=== PATIENT | female | born 1995 | race Caucasian/White ===

== ENCOUNTER 2016-10-31 09:45 | Emergency (ER) | payer OTHER ==
[2016-10-31 10:07] VITALS: BP 113/45
[2016-10-31] MEDS ORDERED: Ondansetron ODT TAB* 4 MG PO ONE (10:49)
[2016-10-31] MEDS ORDERED: Famotidine TAB* 20 MG PO ONE (10:50)
[2016-10-31] MEDS ORDERED: Acetaminophen TAB* 325 MG PO ONE (10:53)
--- NOTE | 2016-10-31 10:57 | UC ---
UC General HPI - HPI Summary HPI Summary: patient ate at a restaurant last night, 3 hours later stared having violent diarrhea and nausea, she is able to tolerate water but diarrhea is persistant. low grade temp - History of Current Complaint Chief Complaint: UCGeneralIllness Stated Complaint: DIARRHEA,ACHY,STOMACH CRAMPS Time Seen by Provider: 10/31/16 10:40 Hx Obtained From: Patient Onset/Duration: Sudden Onset, Lasting Hours Timing: Constant Onset Severity: Moderate Current Severity: Moderate Pain Intensity: 6 Associated Signs & Symptoms: Positive: Abdominal Pain, Diarrhea, Headache, Nausea - Allergy/Home Medications Allergies/Adverse Reactions: Allergies Allergy/AdvReac Type Severity Reaction Status Date / Time No Known Allergies Allergy Verified 10/31/16 10:07 PMH/Surg Hx/FS Hx/Imm Hx Previously Healthy: Yes Endocrine History Of: Denies: Diabetes, Thyroid Disease Cardiovascular History Of: 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 C section - Family History Known Family History: Positive: Cardiac Disease, Hypertension, Diabetes - Social History Alcohol Use: None Substance Use Type: None Smoking Status (MU): Former Smoker Type: Cigarettes Amount Used/How Often: 1 cig daily Have You Smoked in the Last Year: No When Did the Patient Quit Smoking/Using Tobacco: 9 WKS AGO - Immunization History Most Recent Influenza Vaccination: NO Review of Systems Constitutional: Fever Skin: Negative Eyes: Negative ENT: Negative Respiratory: Negative Cardiovascular: Negative Gastrointestinal: Abdominal Pain, Diarrhea, Other - nausea Genitourinary: Negative Motor: Negative Neurovascular: Negative Musculoskeletal: Negative Neurological: Headache Psychological: Negative All Other Systems Reviewed And Are Negative: Yes Physical Exam Triage Information Reviewed: Yes Appearance: Well-Nourished, Ill-Appearing, Pain Distress Vital Signs: Initial Vital Signs Temp 100.3 F 10/31/16 10:02 Pulse 105 10/31/16 10:02 Resp 16 10/31/16 10:02 BP 113/45 10/31/16 10:02 Pulse Ox 98 10/31/16 10:02 Vital Signs Reviewed: Yes Eye Exam: Normal Eyes: Positive: Conjunctiva Clear ENT Exam: Normal ENT: Positive: Normal ENT inspection, Pharynx normal, TMs normal Dental Exam: Normal Neck exam: Normal Neck: Positive: Supple, Nontender, No Lymphadenopathy Respiratory Exam: Normal Respiratory: Positive: Chest non-tender, Lungs clear, Normal breath sounds Cardiovascular Exam: Normal Cardiovascular: Positive: RRR, No Murmur, Pulses Normal Abdominal Exam: Other - abdomen is soft, tenderness is diffuse, no masses, no rebound tenderness, no obturator sign, no organomegaly, no visible bruises, C section scar, well healed Bowel Sounds: Positive: Hyperactive Musculoskeletal Exam: Normal Musculoskeletal: Positive: Strength Intact, ROM Intact, No Edema Neurological Exam: Normal Neurological: Positive: Alert, Muscle Tone Normal Psychological Exam: Normal Skin Exam: Normal Course/Dx - Course Course Of Treatment: history obtained, exam performed, meds given here for nasuea, offered IV fluids, patient refused. Po intake increased stressed due to patient is actively and having diarrhea. zofran prescribed. - Differential Dx - Multi-Symptom Provider Diagnoses: dehydration. diarrhea. possible food poisoning Discharge - Discharge Plan Condition: Stable Disposition: HOME Patient Education Materials: Food Poisoning (ED), Dehydration (ED) Additional Instructions: take the zofran for nausea. The important thing to remember is to keep drinking plenty of fluid. if you develop signs of dehydration, see attched information, return or report to ER for fluid administration. Get plenty of rest. Diarrhea should subside within the next 24 hours. if symptoms are not improving in that time i recommend follow up as well.
== END 2016-10-31 11:03 | disposition home or self-care (01) ==
LOC: UCCORT 09:45
DX: R19.7 Diarrhea, unspecified (principal); E86.0 Dehydration; R01.1 Cardiac murmur, unspecified; Z87.891 Personal history of nicotine dependence
CPT/HCPCS: 99212; A9270-GY; G0463

== ENCOUNTER 2016-12-12 12:10 | Emergency (ER) | payer OTHER ==
[2016-12-12] MEDS ORDERED: Acetaminophen TAB* 325 MG PO ONE (13:07)
--- NOTE | 2016-12-12 13:07 | UC ---
Head Injury HPI - HPI Summary HPI Summary: complaint of left knee pain and leftsided headpain that started this morning at 10:30 this morning was walking and tripped over her dog falling onto knee and hit left side head on the doorframe left knee pain is worse with ambulation and any movement increases the pain pain is worse on the sides of her knee and around patella pain is slightly reduced with ice slight headache in her forehead denies LOC , vomiting , confusion still feels slightly dizzy if she moves too fast hasn't taken any medication for pain - History Of Current Complaint Chief Complaint: UCHeadInjury Stated Complaint: HEAD & LEFT KNEE INJURY-FALL Time Seen by Provider: 12/12/16 12:54 Hx Obtained From: Patient Hx Last Menstrual Period: 11/25/16 Character: Dull Aggravating Factor(s): Other - fall Associated Signs And Symptoms: Positive: Negative - Allergies/Home Medications Allergies/Adverse Reactions: Allergies Allergy/AdvReac Type Severity Reaction Status Date / Time No Known Allergies Allergy Verified 12/12/16 12:26 Home Medications: Home Medications Vit W/ Ferrous Fumara [ Complete] 1 tab PO DAILY 12/12/16 [ History Confirmed 12/12/16] PMH/Surg Hx/FS Hx/Imm Hx Previously Healthy: Yes Endocrine History Of: Denies: Diabetes, Thyroid Disease Cardiovascular History Of: 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 C section - Family History Known Family History: Positive: Cardiac Disease, Hypertension, Diabetes - Social History Occupation: Employed Full-time Lives: With Family Alcohol Use: Rare Substance Use Type: None Smoking Status (MU): Current Every Day Smoker Type: Cigarettes Amount Used/How Often: variable each day Length of Time of Smoking/Using Tobacco: started at age 17 Have You Smoked in the Last Year: Yes When Did the Patient Quit Smoking/Using Tobacco: 9 WKS AGO Cessation Counseling: Patient Advised to Stop - Immunization History Most Recent Influenza Vaccination: NO Review of Systems Constitutional: Negative Skin: Negative Eyes: Negative ENT: Negative Respiratory: Negative Cardiovascular: Negative Gastrointestinal: Negative Genitourinary: Negative Motor: Negative Neurovascular: Negative Musculoskeletal: Other: - left knee pain Neurological: Headache All Other Systems Reviewed And Are Negative: Yes Physical Exam Triage Information Reviewed: Yes Appearance: No Pain Distress, Well-Nourished Vital Signs: Initial Vital Signs Temp 98.5 F 12/12/16 12:16 Pulse 88 12/12/16 12:16 Resp 14 12/12/16 12:16 BP 113/64 12/12/16 12:16 Pulse Ox 98 12/12/16 12:16 Vital Signs Reviewed: Yes Eyes: Positive: Conjunctiva Clear ENT: Positive: Pharynx normal, TMs normal. Negative: Nasal congestion, Nasal drainage Neck: Positive: No Lymphadenopathy, Other: - no c-spine tenderness Respiratory: Positive: Lungs clear, Normal breath sounds, No respiratory distress, No accessory muscle use Cardiovascular: Positive: RRR, No Murmur Abdomen Description: Positive: Nontender, Soft Musculoskeletal: Positive: Other: - LLE- tenderness around lower area of patella -mild edema no instability with varus and valgus strain negative drawer signs Neurological: Positive: Alert, Other: - CN ll-Xll,negative [place] Psychological Exam: Normal Skin Exam: Normal Head Injury Course/Dx - Course Course Of Treatment: exam completed. no indication for imaging -head injury. precautions discussed - Differential Dx/Diagnosis Differential Diagnosis/HQI/PQRI: Contusion, Other - LLE-knee sprain Provider Diagnoses: head injury. left knee sprain Discharge - Discharge Plan Condition: Stable Disposition: HOME Patient Education Materials: Knee Sprain (ED), Head Injury (ED), RICE Therapy ( ED) Forms: *Work Release Referrals: Rachel Sparks MD [Primary Care Provider] - Yandel Daniels MD [Medical Doctor] - Additional Instructions: Increase fluids and rest Take acetaminophen for pain Please review your discharge instructions. If your symptoms do not improve please call your primary care provider , Dr Daniels or return to urgent care.
--- NOTE | 2016-12-12 13:37 | RAD ---
INDICATION: Left knee trauma. TECHNIQUE: 2 views of the left knee were obtained. FINDINGS: The bones are normal alignment. No joint effusion or fracture is seen. Joint spaces appear maintained. IMPRESSION: NO EVIDENCE FOR FRACTURE.
[2016-12-12 14:05] VITALS: BP 113/60
== END 2016-12-12 14:05 | disposition home or self-care (01) ==
LOC: UCCORT 12:10
DX: S09.90XA Unspecified injury of head, initial encounter (principal); S83.92XA Sprain of unspecified site of left knee, initial encounter; W01.0XXA Fall on same level from slipping, tripping and stumbling without subsequent striking against object, initial encounter; Y93.9 Activity, unspecified; Y92.9 Unspecified place or not applicable; F17.210 Nicotine dependence, cigarettes, uncomplicated
CPT/HCPCS: 99213; A9270-GY; G0463

== ENCOUNTER 2017-02-03 13:38 | Emergency (ER) | payer SELFPAY ==
[2017-02-03 13:53] VITALS: BP 115/61
--- NOTE | 2017-02-03 14:27 | UC ---
Ear Complaint HPI - HPI Summary HPI Summary: Patient has had increased ear pain and DEJESUS over the past 3 days. loose stools for the past 3 days as well. denies fever, sore throat, - History of Current Complaint Chief Complaint: UCGeneralIllness Stated Complaint: BOWEL/EAR COMPLAINT Time Seen by Provider: 02/03/17 14:15 Hx Obtained From: Patient Hx Last Menstrual Period: 12/23/16, PERIODS ARE IRREGULAR ?: No Onset/Duration: Sudden Onset, Lasting Days Severity Initially: Mild Severity Currently: Moderate Alleviating Factors: Nothing Associated Signs/Symptoms: Positive: Hearing Loss - muffled in left ear - Allergies/Home Medications Allergies/Adverse Reactions: Allergies Allergy/AdvReac Type Severity Reaction Status Date / Time No Known Allergies Allergy Verified 02/03/17 13:45 PMH/Surg Hx/FS Hx/Imm Hx Previously Healthy: Yes Endocrine History Of: Denies: Diabetes, Thyroid Disease Cardiovascular History Of: 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 C section - Family History Known Family History: Positive: Cardiac Disease, Hypertension, Diabetes - Social History Alcohol Use: Rare Substance Use Type: None Smoking Status (MU): Current Some Day Smoker Type: Cigarettes Amount Used/How Often: variable each day Length of Time of Smoking/Using Tobacco: started at age 17 Have You Smoked in the Last Year: Yes When Did the Patient Quit Smoking/Using Tobacco: 9 WKS AGO - Immunization History Most Recent Influenza Vaccination: NO Review of Systems Constitutional: Negative Skin: Negative Eyes: Negative ENT: Ear Ache, Nasal Discharge Respiratory: Negative Cardiovascular: Negative Gastrointestinal: Negative Genitourinary: Negative Motor: Negative Neurovascular: Negative Musculoskeletal: Negative Neurological: Headache Psychological: Negative All Other Systems Reviewed And Are Negative: Yes Physical Exam Triage Information Reviewed: Yes Appearance: Well-Nourished, Ill-Appearing, Pain Distress Vital Signs: Initial Vital Signs Temp 98.5 F 02/03/17 13:45 Pulse 81 02/03/17 13:45 Resp 16 02/03/17 13:45 BP 115/61 02/03/17 13:45 Pulse Ox 99 02/03/17 13:45 Vital Signs Reviewed: Yes Eye Exam: Normal Eyes: Positive: Conjunctiva Clear ENT: Positive: Pharynx normal, Nasal congestion, TM bulging - serous fluid behind left TM Dental Exam: Normal Neck exam: Normal Neck: Positive: Supple, Nontender, No Lymphadenopathy Respiratory Exam: Normal Respiratory: Positive: Chest non-tender, Lungs clear, Normal breath sounds Cardiovascular Exam: Normal Cardiovascular: Positive: RRR, No Murmur, Pulses Normal Abdominal Exam: Normal Abdomen Description: Positive: Nontender, No Organomegaly, Soft, Other: - intermittant cramping Bowel Sounds: Positive: Present Musculoskeletal Exam: Normal Musculoskeletal: Positive: Strength Intact, ROM Intact, No Edema Neurological Exam: Normal Neurological: Positive: Alert, Muscle Tone Normal Psychological Exam: Normal Skin Exam: Normal Ear Complaint Course/Dx - Course Course Of Treatment: hx obtained, exam performed, meds reviewed, flu swab obtained, prednisone prescribed for decongestion of left ear - Differential Dx/Diagnosis Differential Diagnosis/HQI/PQRI: Bronchitis, Cellulitis, Otitis Externa, Otitis Media, Trauma, URI Provider Diagnoses: serous otitis right. viral syndrome. diarrhea Discharge - Discharge Plan Condition: Stable Disposition: HOME Prescriptions: predniSONE TAB* [Deltasone TAB*] 40 mg PO DAILY #14 tab Patient Education Materials: Serous Otitis Media (ED) Forms: *Work Release Additional Instructions: . take the prednisone for the ear pain. you can take an immodium with the next loose stool. increase your fluid intake and have a bland diet.
== END 2017-02-03 15:15 | disposition home or self-care (01) ==
LOC: UCCORT 13:38
DX: H65.91 Unspecified nonsuppurative otitis media, right ear (principal); B34.9 Viral infection, unspecified; R19.7 Diarrhea, unspecified; R01.1 Cardiac murmur, unspecified; Z87.891 Personal history of nicotine dependence
CPT/HCPCS: 87502; 99212; G0463

== ENCOUNTER 2017-04-21 12:22 | Emergency (ER) | payer OTHER ==
[2017-04-21 12:29] VITALS: BP 113/66
--- NOTE | 2017-04-21 12:45 | UC ---
Throat Pain/Nasal Glenn HPI - HPI Summary HPI Summary: Pt presents with c/o core throat X 2 days. Delfino fever or chills, Pt sates that she has PND and that she can feel the mucous "dripping" - History of Current Complaint Chief Complaint: UCRespiratory Stated Complaint: SORE THROAT COUGH RUNNY NOSE Time Seen by Provider: 04/21/17 12:25 Hx Obtained From: Patient Hx Last Menstrual Period: 03/26/17 ?: No Onset/Duration: Sudden Onset, Lasting Days - 2 Severity: Mild Associated Signs & Symptoms: Positive: Dysphagia - Allergies/Home Medications Allergies/Adverse Reactions: Allergies Allergy/AdvReac Type Severity Reaction Status Date / Time No Known Allergies Allergy Verified 04/21/17 12:29 PMH/Surg Hx/FS Hx/Imm Hx Previously Healthy: Yes - Surgical History Surgical History: Yes Surgery Procedure, Year, and Place: t & A. C section - Family History Known Family History: Positive: Cardiac Disease, Hypertension, Diabetes - Social History Lives: With Family Alcohol Use: None Substance Use Type: None Smoking Status (MU): Current Some Day Smoker Type: Cigarettes Amount Used/How Often: variable each day Length of Time of Smoking/Using Tobacco: started at age 17 Have You Smoked in the Last Year: Yes When Did the Patient Quit Smoking/Using Tobacco: 9 WKS AGO - Immunization History Most Recent Influenza Vaccination: NO Review of Systems Constitutional: Fatigue - has 7 month old baby at home Skin: Negative Eyes: Negative ENT: Sore Throat, Other - nasal congestion Respiratory: Negative Cardiovascular: Negative Gastrointestinal: Negative Genitourinary: Negative Motor: Negative Neurovascular: Negative Musculoskeletal: Negative Neurological: Negative Psychological: Negative All Other Systems Reviewed And Are Negative: Yes Physical Exam Triage Information Reviewed: Yes Appearance: Well-Appearing Vital Signs: Initial Vital Signs Temp 99 F 04/21/17 12:24 Pulse 92 04/21/17 12:24 Resp 14 04/21/17 12:24 BP 113/66 04/21/17 12:24 Pulse Ox 99 04/21/17 12:24 Eye Exam: Normal ENT Exam: Other ENT: Positive: Pharynx normal, Nasal congestion Neck exam: Normal Respiratory Exam: Normal Cardiovascular Exam: Normal Musculoskeletal Exam: Normal Neurological Exam: Normal Psychological Exam: Normal Skin Exam: Normal Throat Pain/Nasal Course/Dx - Differential Dx/Diagnosis Differential Diagnosis/HQI/PQRI: Pharyngitis, URI Provider Diagnoses: sore throat Discharge - Discharge Plan Condition: Stable Disposition: HOME Prescriptions: LoraTADine TAB(NF) [Claritin 10 MG TAB(NF)] 10 mg PO DAILY #10 tab Patient Education Materials: Pharyngitis (ED) Forms: *Work Release Referrals: Rachel Sparks MD [Primary Care Provider] -
== END 2017-04-21 12:52 | disposition home or self-care (01) ==
LOC: UCCORT 12:22
DX: J02.9 Acute pharyngitis, unspecified (principal); Z87.891 Personal history of nicotine dependence
CPT/HCPCS: 87651; 99211; G0463

== ENCOUNTER 2017-07-30 20:02 | Emergency (ER) | payer OTHER ==
[2017-07-30 20:18] VITALS: BP 106/69
--- NOTE | 2017-07-30 20:38 | UC ---
Abdominal Pain Female HPI - HPI Summary HPI Summary: on day 3 of uri sx with nausea/vomiting diarrhea no fevers-no one else at home with similar illness works at [employer] and is breast feeding - History of Current Complaint Chief Complaint: UCRespiratory Stated Complaint: STOMACH COMPLAINT Time Seen by Provider: 07/30/17 20:20 Hx Obtained From: Patient Hx Last Menstrual Period: 07/20/17 ?: No Onset/Duration: Gradual Onset, Lasting Days - 3 Timing: Constant Severity Initially: Mild Severity Currently: Moderate Location: Diffuse Radiates: No Character: Cramping Aggravating Factor(s): Food Alleviating Factor(s): Nothing Associated Signs and Symptoms: Positive: Nausea, Vomiting, Diarrhea Allergies/Adverse Reactions: Allergies Allergy/AdvReac Type Severity Reaction Status Date / Time No Known Allergies Allergy Verified 07/30/17 20:11 Home Medications: Home Medications Tylenol Cold And Sore Throat 1 tbsp PO BID PRN 07/30/17 [History] PMH/Surg Hx/FS Hx/Imm Hx Previously Healthy: Yes - Surgical History Surgical History: Yes Surgery Procedure, Year, and Place: t & A. C section - Family History Known Family History: Positive: Cardiac Disease, Hypertension, Diabetes - Social History Occupation: Employed Part-time - [employer] Lives: With Family Alcohol Use: None Substance Use Type: None Smoking Status (MU): Current Some Day Smoker Type: Cigarettes Amount Used/How Often: 1 every couple of days. Length of Time of Smoking/Using Tobacco: started at age 17 Have You Smoked in the Last Year: Yes When Did the Patient Quit Smoking/Using Tobacco: 9 WKS AGO - Immunization History Most Recent Influenza Vaccination: NO Review of Systems Constitutional: Negative Skin: Negative Eyes: Negative ENT: Nasal Discharge - began 3 days ago Respiratory: Negative Cardiovascular: Negative Gastrointestinal: Negative, Vomiting, Diarrhea, Nausea Genitourinary: Negative Motor: Negative Neurovascular: Negative Musculoskeletal: Negative Neurological: Negative Psychological: Negative Is Patient Immunocompromised?: No All Other Systems Reviewed And Are Negative: Yes Physical Exam Triage Information Reviewed: Yes Appearance: Well-Appearing, No Pain Distress, Well-Nourished Vital Signs: Initial Vital Signs Temp 98.4 F 07/30/17 20:13 Pulse 101 07/30/17 20:13 Resp 16 07/30/17 20:13 BP 106/69 07/30/17 20:13 Pulse Ox 99 10/20/17 20:13 Vital Signs Reviewed: Yes Eye Exam: Normal Eyes: Positive: Conjunctiva Clear ENT Exam: Normal ENT: Positive: Normal ENT inspection, Hearing grossly normal, TMs normal. Negative: Nasal congestion, Nasal drainage, Trismus, Muffled/hoarse voice Dental Exam: Normal Neck exam: Normal Neck: Positive: Supple, Nontender Respiratory Exam: Normal Respiratory: Positive: Chest non-tender, Lungs clear, Normal breath sounds, No respiratory distress, No accessory muscle use Cardiovascular Exam: Normal Cardiovascular: Positive: RRR, No Murmur, Pulses Normal, Brisk Capillary Refill Abdominal Exam: Normal Abdomen Description: Positive: No Organomegaly, Soft, Other: - diffuse discomfort Bowel Sounds: Positive: Present Musculoskeletal Exam: Normal Musculoskeletal: Positive: Strength Intact, ROM Intact, No Edema Neurological Exam: Normal Neurological: Positive: Alert, Muscle Tone Normal Psychological Exam: Normal Skin Exam: Normal Diagnostics - Laboratory Diagnostic Studies Completed/Ordered: flu (-) Preg (-) ua (-) sg 1.01 Abd Pain Female Course/Dx - Course Course Of Treatment: dietary reccommendations for relief, tylenol, increase fluids stool sample follow with pcp prn - Differential Dx/Diagnosis Provider Diagnoses: Acute Nausea, vomiting, diarrhea Discharge - Discharge Plan Condition: Stable Disposition: HOME Patient Education Materials: Clear Liquid Diet (ED), Acute Nausea and Vomiting (ED), Acute Diarrhea (ED), Nutrition Tips for Relief of Diarrhea (ED) Forms: *Work Release Referrals: [facility] [place] [facility]FERR[facility] [Outside] - If Needed
== END 2017-07-30 21:02 | disposition home or self-care (01) ==
LOC: UCCORT 20:02
DX: R11.10 Vomiting, unspecified (principal); R19.7 Diarrhea, unspecified; Z32.02 Encounter for pregnancy test, result negative; F17.210 Nicotine dependence, cigarettes, uncomplicated
CPT/HCPCS: 81003; 82272; 84702; 87045; 87046; 87077; 87328; 87329; 87425; 87502; 87899; 99211; G0463